=== PATIENT | male | born 1980 | race Caucasian/White ===

== ENCOUNTER 2020-09-18 17:35 | Emergency (ER) | payer OTHER, SELFPAY ==
[2020-09-18 17:51] VITALS: BP 115/80; PULSE 77; RESP 19; TEMP 37.4; O2SAT 94; BMI 25.5
--- NOTE | 2020-09-18 21:11 | ED_ITS ---
HPI - Male Genitourinary General Chief complaint: Urogenital-Male Stated complaint: states UTI Time Seen by Provider: 09/18/20 19:11 Source: patient Mode of arrival: Ambulatory Limitations: no limitations History of Present Illness HPI Narrative: 39-year-old male nonsmoker with noncontributory medical history presents with a chief complaint of a burning, frequency and urgency for the past 2 days. He has had a fever as high as 101 but denies any shaking chills, nausea, vomiting or back pain. 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 He denies any new partners, he denies any discharge and states his partner has no symptoms. MD Complaint: dysuria Onset (ago): day(s) Duration: constant Severity: mild Relieving factors: none Exacerbating factors: urination Context: new medication Associated symptoms: Reports fever Related Data Previous Rx's Medication Instructions Recorded sulfamethoxazole-trimethoprim 1 tab PO BID 10 Days #20 tab 09/18/20 [Bactrim DS] Allergies Allergy/AdvReac Type Severity Reaction Status Date / Time No Known Drug Allergies Allergy Verified 09/18/20 17:55 Review of Systems Constitutional Constitutional: Denies chills, Denies fatigue, Reports fever(s), Denies frequent falls, Denies lethargy and Denies weakness Eyes Eyes: Denies change in vision, Denies eye discharge, Denies irritation and Denies loss of vision ENT Ears, Nose, Mouth, and Throat: Denies change in voice, Denies dizziness, Denies neck pain, Denies sore throat and Denies throat swelling Cardiovascular Cardiovascular: Denies chest pain, Denies irregular heart rhythm, Denies lightheadedness, Denies palpitations, Denies dyspnea, Denies dyspnea on exertion and Denies orthopnea Respiratory Respiratory: Denies cough, Denies dyspnea, Denies dyspnea on exertion and Denies wheezing Gastrointestinal Gastrointestinal: Denies abdominal pain, Denies change in bowel habits, Denies diarrhea, Denies nausea and Denies vomiting Genitourinary Genitourinary: Reports dysuria and Reports urinary urgency Genitourinary: Reports dysuria and Reports urinary urgency Musculoskeletal Musculoskeletal: Denies neck pain and Denies numbness Integumentary/Breasts Skin/Breast: Denies pruritus, Denies erythema, Denies rash and Denies wounds Neurologic Neurologic: Denies behavioral changes, Denies confusion, Denies dizziness, Denies frequent falls, Denies loss of vision, Denies numbness and Denies weakness Psychiatric Psychiatric: Denies anxiety, Denies behavioral changes, Denies confusion, Denies depression, Denies homicidal ideation and Denies suicidal ideation Endocrine Endocrine: Denies fatigue, Denies flushing and Denies palpitations Hematologic/Lymphatic Hematologic/Lymphatic: Denies easy bruising Allergic/Immunologic Allergic/Immunologic: Denies urticaria, Denies throat swelling and Denies wheezing Patient History Social History Smoking Status: Never smoker Smoking Status: Never smoker alcohol intake frequency: 0-2 drinks per day Substance Use Type: does not use Exam Narrative Exam Narrative: GEN: AOx3 and in mild distress EYES: Pupils are equal, round, and reactive to light and accommodation. Extraoccular muscles are intact bilaterally. There is no subconjunctival hemorrhage or exudate. CHEST: Lungs are clear to auscultation bilaterally and free of wheezes, rales, or rhonchi. Heart rate is regular rhythm, there are no murmurs, clicks, rubs, or gallops. There is no chest wall tenderness. ABD: Abdomen is soft and nontender. There is no guarding or rebound. Bowel sounds are normal in all 4 quadrants. There is no mass or organomegaly. EXT: Full painless ROM of all extremities with no loss of sensation or strength. SKIN: Warm, pink, and dry. No erythema or rash Initial Vital Signs Initial Vital Signs: Vital Signs Temperature 99.3 F 09/18/20 17:51 Pulse Rate 77 09/18/20 17:51 Respiratory Rate 19 09/18/20 17:51 Blood Pressure 115/80 09/18/20 17:51 Pulse Oximetry 94 09/18/20 17:51 Course Orders Ordered: ED Orders 09/18/20 21:46 Urinalysis and Microscopic Stat Urine Culture Stat Discontinued Medications Trimethoprim/Sulfamethoxazole (Trimeth/Sulfa 160/800 (Ds) Tablet) 1 tab PO NOW ONE Stop: 09/18/20 22:53 Last Admin: 09/18/20 23:12 Dose: 1 tab Documented by: IDA Vital Signs Vital signs: Vital Signs - 8 hr 09/18/20 17:51 Temperature 99.3 F Pulse Rate 77 Respiratory Rate 19 Blood Pressure 115/80 Pulse Oximetry 94 MDM - Male Genitourinary Lab Data Labs: Lab Results 09/18/20 Range/Units 21:46 Urine Color Yellow Urine Appearance Clear Urine pH 6.5 (4.5-8.0) Ur Specific [place] 1.015 (1.000-1.035) Urine Protein Negative (Negative) Urine Glucose (UA) Negative (Negative) g/dL Urine Ketones 1+ H (NEGATIVE) Urine Occult Blood Negative (Negative) Urine Nitrate Negative (Negative) Urine Bilirubin Negative (NEGATIVE) Urine Urobilinogen 1.0 (0.2) E.U./dL Ur Leukocyte Esterase Negative (NEGATIVE) Urine RBC None seen (0-5/HPF) Urine WBC 1-5/hpf (0-5/HPF) Urine Bacteria Few (2-10) H (None) Ur Culture Indicated? Specimen cultured Urine Dip Bedside Urine Glucose Negative Bedside Urine Bilirubin - Negative Bedside Urine Ketone +/- 5 Urine Specific [place] 1.015 Bedside Urine Occult Blood - Negative Bedside Urine pH 6.0 Bedside Urine Protein - Negative Bedside Urine Urobilinogen - Negative Bedside Urine Nitrite - Negative Bedside Urine Leukocytes - Negative Esterase Discharge Plan Departure Patient Disposition: Home Clinical Impression: Urinary tract infection Qualifiers: Urinary tract infection type: acute pyelonephritis Qualified Code(s): N10 - Acute pyelonephritis Instructions: DI for Kidney Infection Activity Restrictions/Additional Instructions: *You have been diagnosed with [acute urinary tract infection, likely with kidney involvement] *What to do: *Take medications as directed *Follow up with your primary care provider in 2-3 days, call for an appointment. Let them know you were seen in the Emergency Department and that we ask that you be seen in follow up *Return to ER if you should have any new, worsening or concerning symptoms, fever, shaking chills, nausea, vomiting, worsening pain or other bothersome symptoms Prescriptions: New sulfamethoxazole-trimethoprim [Bactrim DS] 800-160 mg tablet 1 tab PO BID 10 Days Qty: 20 RF: 0
[2020-09-18 21:48] LABS: RBC Urine None Seen (0-5/HPF)
[2020-09-18 21:49] LABS: Appearance Urine UA CLEAR; Bilirubin Urine UA NEGATIVE (NEGATIVE); Color Urine UA YELLOW; Glucose Urine UA NEGATIVE (Negative); Ketones Urine UA 1+ (NEGATIVE); Leukocyte Esterase Urine UA NEGATIVE (NEGATIVE); Nitrite Urine UA NEGATIVE (Negative); Occult Blood Urine UA NEGATIVE (Negative); Protein Urine UA NEGATIVE (Negative); Specific Gravity Urine UA 1.015 (1.000-1.035); pH Urine UA 6.5 (4.5-8.0)
[2020-09-18 22:06] LABS: WBC Urine 1-5/HPF (0-5/HPF)
[2020-09-18 22:07] LABS: Bacteria Urine Few (2-10)
[2020-09-18 22:08] LABS: Culture Indicated Urine Specimen Cultured
[2020-09-18] MEDS: TRIMETH/SULFA 160/800 (DS) TABLET 1 TAB PO (23:12)
== END 2020-09-18 23:17 | disposition home or self-care (01) ==
PROVIDERS: Emergency Provider Emergency Medicine
DX: N39.0 Urinary tract infection, site not specified (principal); N10 Acute pyelonephritis; R50.9 Fever, unspecified; R30.0 Dysuria
CPT/HCPCS: 81001; 81003; 87077; 87086; 99281; 99283

== ENCOUNTER 2022-05-29 12:24 | Emergency (ER) | payer OTHER, SELFPAY ==
[2022-05-29 12:30] VITALS: TEMP 36.2; BMI 28.1
--- NOTE | 2022-05-29 12:35 | DI.RAD.S_ITS ---
PROCEDURE: XR CHEST 1V INDICATIONS: cough, recent covid, TECHNIQUE: One view of the chest was acquired. COMPARISON: None. FINDINGS: Surgical changes and devices: None. Lungs and pleura: Lungs are clear. No pleural effusions or pneumothorax. Mediastinum: Mediastinal contours appear normal. Heart size is normal. Bones and chest wall: No suspicious bony lesions. Overlying soft tissues appear unremarkable. IMPRESSION: No evidence of an acute cardiopulmonary abnormality. Dictated by: Nestor Livingston D.O. on 05/29/2022 at 12:07 Approved by: Nestor Livingston D.O. on 05/29/2022 at 12:07
[2022-05-29 12:57] LABS: COVID19 -Nasal RAPID Negative (Negative)
--- NOTE | 2022-05-29 15:59 | ED.URI ---
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 He says that 2 weeks ago he developed COVID symptoms and was COVID positive at that time. He was very sick for about 3 days and then got feeling quite a bit better. He was able to do full workout and go back to work about 5 days later. But then 1 week ago he started developing a cough and some fatigue and excessive sleepiness. His was treated for walking pneumonia just recently. He says everyone at home was sick with COVID at [place] time. He says that he is concerned that something more serious might be going on here today. He does not really have chest pain other than some fleeting sharp left sternal chest pains he has had no hemoptysis. He has no history of DVT or pulmonary embolism or any other health condition including neoplasm or pulmonary disease. He does not smoke cigarettes. Related Data Allergies Allergy/AdvReac Type Severity Reaction Status Date / Time No Known Drug Allergies Allergy Verified 09/18/20 17:55 Review of Systems Review of Systems Narrative: Complete review of systems is negative other than as noted above. Patient History Social History Smoking Status: Never smoker Smoking Status: Never smoker alcohol intake frequency: 0-2 drinks per day Substance Use Type: does not use Exam Narrative Exam Narrative: GENERAL: Alert, cooperative and in no distress. HEAD: Atraumatic. Normocephalic. EYES: Sclera are clear without icterus. Extraocular movements are full. ENT: No rhinorrhea. Oropharynx is moist. Mouth exam is benign. Ears are normal as well NECK: Supple. Full range of motion. CARDIOVASCULAR: Normal rate and rhythm without murmur gallop or rub. RESPIRATORY: Clear to auscultation. Breath sounds equal bilaterally. No wheezes, rales, or rhonchi. GASTROINTESTINAL: Abdomen soft, non-tender, nondistended. EXTREMITIES: No edema, full range of motion. No obvious trauma. BACK: Normal inspection, no CVA tenderness. NEURO: Nonfocal examination, normal speech, normal gait. SKIN: No rash or erythema of visible areas PSYCH: Normally oriented. Normal range of affect. Appropriate behavior Initial Vital Signs Initial Vital Signs: Vital Signs Temperature 97.1 F L 05/29/22 12:30 Course Orders Ordered: ED Orders 05/29/22 12:35 XR chest 1V Stat 05/29/22 12:36 COVID19 -Nasal RAPID/Pre-Proc Stat Vital Signs Vital signs: Vital Signs - 8 hr 05/29/22 12:30 Temperature 97.1 F L MDM - URI/Sore Throat Lab Data Labs: Lab Results 05/29/22 Range/Units 12:36 SARS-CoV-2 (PCR) Negative (Negative) Imaging Data Chest x-ray: Radiologist's Impression: IMPRESSION:? ? No evidence of an acute cardiopulmonary abnormality. ? ? Dictated by: Nestor Livingston D.O. on 05/29/2022 at 12:07 ? ? Approved by: Nestor Livingston D.O. on 05/29/2022 at 12:07 ? MDM Narrative Medical decision making narrative: Blood pressure is 140/80. Pulse is 60, oxygen saturation on room air is 99%. Heart rate is about 61. This gentleman looks well he has completely normal lung exam. I think he has residual inflammatory response in his bronchial tree. I do not think he has pneumonia or dangerous complications associated with his COVID infection. I think watchful waiting is still appropriate. Discharge Plan Departure Patient Disposition: Home Clinical Impression: Upper respiratory infection Activity Restrictions/Additional Instructions: Chest x-ray and COVID tests are negative. I do not suspect a dangerous complication associated with COVID-19 or any other serious infection. I do not think you have bacterial pneumonia. I think antibiotic treatment would be inappropriate in this setting as we would be exposing you to the risk with no expected benefit. I think watchful waiting is appropriate at this time and I recommend continued copious oral hydration and additional rest. You should follow-up with a primary care provider in a week if things are not starting to noticeably improved. Of course she should follow up right away if things are getting worse. Referrals: ProviderLadonna [Primary Care Provider] -
== END 2022-05-29 16:10 | disposition home or self-care (01) ==
PROVIDERS: Emergency Provider Family Medicine Addiction Medicine
DX: J06.9 Acute upper respiratory infection, unspecified (principal); Z20.822 Contact with and (suspected) exposure to COVID-19; Z86.16 Personal history of COVID-19
CPT/HCPCS: 71045; 87635; 99281; 99283; C9803

== ENCOUNTER → 2022-06-28 13:11 | Outpatient (CLI) | payer OTHER, SELFPAY ==
--- NOTE | 2022-06-28 | DI.RAD.S_ITS ---
PROCEDURE: FL SHOULDER INJECTION MR/CT LT INDICATIONS: Pain in shoulder COMPARISON: None. TECHNIQUE: The indications, alternatives, benefits, risks, and complications of the procedure were explained to the patient. Written informed consent was obtained and placed in the chart. The shoulder was examined fluoroscopically and a site for needle placement chosen for entry into the glenohumeral joint from an anterior approach. The skin was prepped and draped in a sterile fashion, and 1% lidocaine infiltrated from skin down to joint capsule. A spinal needle was inserted into the glenohumeral joint, and a small amount of iodinated contrast media injected to confirm intra-articular placement of the needle tip. This was followed by approximately 12 mL dilute solution of a gadolinium containing MR contrast agent. The needle was removed and a dressing was applied. The patient was given postprocedural instructions and sent to the MR suite for MR imaging. FINDINGS: A single fluoroscopic spot image demonstrates intra-articular location of injected iodinated contrast. IMPRESSION: Successful fluoroscopically guided administration of dilute Gadolinium solution into the shoulder joint for MR arthrogram. Dictated by: Joshua Castañeda M.D. on 06/28/2022 at 16:20 Approved by: Joshua Castañeda M.D. on 06/28/2022 at 16:20
--- NOTE | 2022-06-28 | DI.MRI.S_ITS ---
PROCEDURE: MR SHOULDER LT W CON INDICATIONS: Pain in left shoulder TECHNIQUE: After the administration of 12 mL of dilute intra-articular Gadolinium contrast, oblique coronal T1 and T2 spin echo with fat saturation, oblique sagittal T1 spin echo with and without fat saturation, oblique sagittal T2 fast spin echo with fat saturation, axial T1 spin echo with fat saturation through the shoulder. COMPARISON: None. FINDINGS: Image quality: Excellent. Rotator cuff: There is partial-thickness tear of the distal supraspinatus tendon involving both articular and bursal surface. The infraspinatus and subscapularis tendons appear intact throughout. No rotator cuff muscle atrophy on sagittal images. Bones and bursae: No bone marrow contusions or fractures. Moderate acromioclavicular and mild glenohumeral joint degeneration. The acromion demonstrates conventional anatomy, without an os acromiale. Capsule and soft tissues: Suspect a SLAP tear in the superior labrum at the 12:00 (series 8, image 10). The glenohumeral ligaments appear intact. The long head of the biceps tendon demonstrates normal location and morphology. The rotator interval appears normal, without fibrosis. The coracohumeral ligament is of normal thickness. No intra-articular bodies. IMPRESSION: 1. Partial-thickness tear of the supraspinatus tendon. No tendon retraction or supraspinatus muscle atrophy. 2. Moderate acromioclavicular and mild glenohumeral joint degeneration. 3. Suspect SLAP tear at the 12:00 position. Dictated by: Melania Saldivar M.D. on 06/29/2022 at 17:17 Approved by: Melania Saldivar M.D. on 06/29/2022 at 17:25
== END ==
DX: M75.112 Incomplete rotator cuff tear or rupture of left shoulder, not specified as traumatic (principal); M19.012 Primary osteoarthritis, left shoulder
CPT/HCPCS: 23350; 73222

== ENCOUNTER → 2022-06-29 12:55 | Outpatient (CLI) | payer OTHER, SELFPAY ==
--- NOTE | 2022-06-29 | DI.MRI.S_ITS ---
PROCEDURE: MR SHOULDER RT W CON INDICATIONS: Pain in shoulder TECHNIQUE: After the administration of 12 mL of dilute intra-articular Gadolinium contrast, oblique coronal T1 and T2 spin echo with fat saturation, oblique sagittal T1 spin echo with and without fat saturation, oblique sagittal T2 fast spin echo with fat saturation, axial T1 spin echo with fat saturation through the shoulder. COMPARISON: None. FINDINGS: Image quality: Excellent. Rotator cuff: There is mild T2 signal elevation throughout the supraspinatus and infraspinatus tendons at the humeral insertion sites extending to the musculotendinous junctions, indicating tendinopathy. Superimposed low-grade partial-thickness intrasubstance tearing of the anterior, mid, and posterior supraspinatus tendons as well as the anterior infraspinatus tendons at the humeral insertion sites. Low-grade partial-thickness intrasubstance tearing of the mid and superior aspect of the subscapularis tendon at the humeral insertion site extending to the musculotendinous junction. Teres minor is intact. No rotator cuff atrophy. Bones and bursae: No bone marrow contusions or fractures. Mild acromioclavicular joint degeneration. The acromion demonstrates conventional anatomy, without an os acromiale. Small amount of subacromial fluid. Capsule and soft tissues: The labrum and glenohumeral ligaments appear intact. The long head of the biceps tendon demonstrates normal location and morphology. The rotator interval appears normal, without fibrosis. The coracohumeral ligament is of normal thickness. No intra-articular bodies. IMPRESSION: 1. Supraspinatus and infraspinatus tendinopathy with superimposed low-grade partial-thickness tears. Low-grade partial-thickness tearing of the subscapularis. 2. Acromioclavicular joint osteoarthritis. 3. Subacromial bursitis. Dictated by: Joshua Castañeda M.D. on 06/29/2022 at 15:54 Transcribed by: KARLI on 06/29/2022 at 15:55 Approved by: Joshua Castañeda M.D. on 06/29/2022 at 16:00
--- NOTE | 2022-06-29 | DI.RAD.S_ITS ---
PROCEDURE: FL SHOULDER INJECTION MR/CT RT INDICATIONS: Pain in shoulder COMPARISON: [facility], , [place] SHOULDER INJECTION MR/CT LT, 06/28/2022, 13:41. TECHNIQUE: The indications, alternatives, benefits, risks, and complications of the procedure were explained to the patient. Written informed consent was obtained and placed in the chart. The shoulder was examined fluoroscopically and a site for needle placement chosen for entry into the glenohumeral joint from an anterior approach. The skin was prepped and draped in a sterile fashion, and 1% lidocaine infiltrated from skin down to joint capsule. A spinal needle was inserted into the glenohumeral joint, and a small amount of iodinated contrast media injected to confirm intra-articular placement of the needle tip. This was followed by approximately 12 mL dilute solution of a gadolinium containing MR contrast agent. The needle was removed and a dressing was applied. The patient was given postprocedural instructions and sent to the MR suite for MR imaging. FINDINGS: A single fluoroscopic spot image demonstrates intra-articular location of injected iodinated contrast. IMPRESSION: Successful fluoroscopically guided administration of dilute Gadolinium solution into the shoulder joint for MR arthrogram. Dictated by: Alexander Patel M.D. on 06/30/2022 at 16:57 Approved by: Alexander Patel M.D. on 06/30/2022 at 16:58
== END ==
DX: M25.511 Pain in right shoulder (principal); M75.111 Incomplete rotator cuff tear or rupture of right shoulder, not specified as traumatic; M19.011 Primary osteoarthritis, right shoulder; M75.51 Bursitis of right shoulder
CPT/HCPCS: 23350; 73222; 77002

== ENCOUNTER → 2023-12-21 08:22 | Outpatient (CLI) | payer OTHER, SELFPAY ==
--- NOTE | 2023-12-21 08:25 | DI.RAD.S_ITS ---
PROCEDURE: FL WRIST INJECTION MR/CT RT INDICATIONS: pain in right wrist COMPARISON: None. TECHNIQUE: After informed consent had been obtained, the wrist was examined fluoroscopically, and a site chosen for injection of the radiocarpal compartment from a dorsal approach. Skin was prepped and draped in a sterile fashion and 1% lidocaine infiltrated from the skin down to the articular surface. A hypodermic needle was then introduced into the articular space and a modest amount of contrast medium was instilled confirming intra-articular needle tip placement. This was followed by approximately 4 mL of a dilute gadolinium solution. Needle was removed and dressing was applied. The patient experienced no complications throughout the procedure and left the fluoroscopic suite in no apparent distress. FINDINGS: A single fluoroscopic spot image demonstrates intra-articular location to injected iodinated contrast. IMPRESSION: Successful fluoroscopic-guided administration of dilute Gadolinium solution for wrist MR arthrogram. Approved by: Ary Albert M.D. on 12/21/2023 at 13:52
--- NOTE | 2023-12-21 08:26 | DI.MRI.S_ITS ---
PROCEDURE: MR WRIST RT W CON INDICATIONS: pain in right wrist TECHNIQUE: After the administration of 3-4 mL of dilute intra-articular Gadolinium contrast into the radiocarpal compartment, coronal T1 spin echo with fat saturation and T2 fast spin echo with fat saturation, axial T1 spin echo and T2 fast spin echo with fat saturation, sagittal T1 spin echo with and without fat saturation through the wrist. COMPARISON: None. FINDINGS: Image quality: Excellent. Bones and cartilage: The carpal bones are normally aligned. No bone marrow contusions or fractures. No evidence for avascular necrosis. Overlying cartilage surfaces appear normal. Carpal ligaments: The scapholunate and lunotriquetral ligaments appear intact, without gadolinium extravasation into the mid-carpal compartment. The radioscaphocapitate and radiolunotriquetral ligaments appear intact. The arcuate ligament and short radiolunate ligament also appear normal. The dorsal intercarpal and radiotriquetral ligaments appear intact. On sagittal images, the pisohamate ligament appears intact. Triangular fibrocartilage complex: There is suggestion of focal triangular fibrocartilage perforation near its radial insertion with gadolinium extravasation into the distal radioulnar joint. The adjacent meniscal homolog appears normal. The ulnar collateral ligament appears intact. The extensor carpi ulnaris tendon is thickened at the level of ulnar styloid tip/triquetrum. Tendons and soft tissues: The carpal tunnel structures appear normal, including the median nerve. The ulnar nerve appears normal within Guyon's canal. All six extensor tendon compartments demonstrate normal morphology, without pathologic tendon sheath fluid. No soft tissue ganglion cysts. IMPRESSION: 1. Suggestion of triangular fibrocartilage tear at its radial insertion with contrast extravasating into distal radial ulnar joint space. 2. No marrow edema. No fracture or dislocation. No evidence of avascular necrosis. 3. Intrinsic and extrinsic wrist ligaments are grossly intact. 4. Tendinosis involving extensor carpi ulnaris tendon at the level of ulnar styloid/triquetrum. Rest of the extensor and flexor tendons are grossly intact. Dictated by: Kayden Guerin M.D. on 12/21/2023 at 14:22 Approved by: Kayden Guerin M.D. on 12/21/2023 at 15:03
[2023-12-21] MEDS: LIDOCAINE 1% 20 ML INJ (09:48)
[2023-12-21] MEDS: SODIUM CHLORIDE 0.9 % 20 ML VIAL IV (09:49)
== END ==
LOC: RAD 08:23
PROVIDERS: Referring Provider General Practice; Visit Provider General Practice
DX: M25.531 Pain in right wrist (principal)
CPT/HCPCS: 20605; 73222; 77002

== ENCOUNTER → 2024-01-09 07:58 | Outpatient (CLI) | payer OTHER, SELFPAY ==
--- NOTE | 2024-01-09 07:59 | DI.MRI.S_ITS ---
PROCEDURE: MR WRIST LT W CON INDICATIONS: Wrist pain TECHNIQUE: After the administration of 3-4 mL of dilute intra-articular Gadolinium contrast into the radiocarpal compartment, coronal T1 spin echo with fat saturation and T2 fast spin echo with fat saturation, axial T1 spin echo and T2 fast spin echo with fat saturation, sagittal T1 spin echo with and without fat saturation through the wrist. COMPARISON: [facility], MR, MR WRIST RT W CON, 12/21/2023, 9:49. FINDINGS: Image quality: Excellent. Bones and cartilage: The carpal bones are normally aligned. No bone marrow contusions or fractures. No evidence for avascular necrosis. Osteoarthritic changes at 1st CMC joint are seen with joint space narrowing, subchondral sclerosis and subcortical cystic changes at 1st metacarpal base. Carpal ligaments: The scapholunate and lunotriquetral ligaments appear intact, without gadolinium extravasation into the mid-carpal compartment. The radioscaphocapitate and radiolunotriquetral ligaments appear intact. The arcuate ligament and short radiolunate ligament also appear normal. The dorsal intercarpal and radiotriquetral ligaments appear intact. On sagittal images, the pisohamate ligament appears intact. Triangular fibrocartilage complex: There is suggestion of focal triangular fibrocartilage tear near its radial insertion with gadolinium extravasation into the distal radioulnar joint. The adjacent meniscal homolog appears normal. The ulnar collateral ligament appears intact. The extensor carpi ulnaris tendon is normal in location and morphology. Tendons and soft tissues: The carpal tunnel structures appear normal, including the median nerve. The ulnar nerve appears normal within Guyon's canal. All six extensor tendon compartments demonstrate normal morphology, without pathologic tendon sheath fluid. No soft tissue ganglion cysts. IMPRESSION: 1. Finding is consistent with focal triangular fibrocartilage tear near its radial insertion with contrast extravasating into distal radial ulnar joint space. 2. Extensor and flexor tendons are intact. 3. Intrinsic and extrinsic wrist ligaments are grossly intact. 4. Mild 1st CMC joint osteoarthritis. No fracture or dislocation. No evidence of avascular necrosis. Dictated by: Kayden Guerin M.D. on 01/09/2024 at 10:37 Approved by: Kayden Guerin M.D. on 01/09/2024 at 10:42
--- NOTE | 2024-01-09 08:00 | DI.RAD.S_ITS ---
PROCEDURE: FL WRIST INJECTION MR/CT LT INDICATIONS: Wrist pain COMPARISON: [facility], [place], [place] WRIST INJECTION MR/CT RT, 12/21/2023, 9:23. [facility], , MR WRIST LT W CON, 01/09/2024, 8:43. TECHNIQUE: After informed consent had been obtained, the wrist was examined fluoroscopically, and a site chosen for injection of the radiocarpal compartment from a dorsal approach. Skin was prepped and draped in a sterile fashion and 1% lidocaine infiltrated from the skin down to the articular surface. A hypodermic needle was then introduced into the articular space and a modest amount of contrast medium was instilled confirming intra-articular needle tip placement. This was followed by approximately 4 mL of a dilute gadolinium solution. Needle was removed and dressing was applied. The patient experienced no complications throughout the procedure and left the fluoroscopic suite in no apparent distress. FINDINGS: A single fluoroscopic spot image demonstrates intra-articular location to injected iodinated contrast. IMPRESSION: Successful fluoroscopic-guided administration of dilute Gadolinium solution for wrist MR arthrogram. Dictated by: Eulalio Major M.D. on 01/09/2024 at 14:13 Approved by: Eulalio Major M.D. on 01/09/2024 at 14:14
[2024-01-09] MEDS: LIDOCAINE 1% 20 ML INJ (09:07)
[2024-01-09] MEDS: SODIUM CHLORIDE 0.9 % 20 ML VIAL IV (09:07)
== END ==
PROVIDERS: Referring Provider Orthopaedic Surgery; Visit Provider Orthopaedic Surgery
DX: M18.12 Unilateral primary osteoarthritis of first carpometacarpal joint, left hand (principal); M25.532 Pain in left wrist
CPT/HCPCS: 20605; 73222; 77002; A9579; Q9967

== ENCOUNTER → 2024-02-14 08:50 | Outpatient (CLI) | payer OTHER, SELFPAY ==
--- NOTE | 2024-02-14 08:50 | DI.MRI.S_ITS ---
PROCEDURE: MR LUMBAR SPINE WO CON INDICATIONS: LOW BACK PAIN / ARTHRALGIA OF TMJ JOINT/JAW PAIN TECHNIQUE: Noncontrast sagittal T1 spin echo and T2 fast echo, sagittal STIR, and T2 fast spin echo through the lumbar spine. In cases with scoliosis, additional coronal T2 fast spin echo may be performed. COMPARISON: [facility], MR, MR TMJ WO CON, 02/14/2024, 9:26. FINDINGS: Image quality: Diagnostic, with note made of motion artifact. Alignment and Curvature: There is normal bony alignment. Bone Marrow: Marrow is of normal overall signal. No acute vertebral body compression fractures. Spinal Cord: Conus medullaris terminates at the L1 level. Visualized cord demonstrates normal signal and size. Paraspinous Soft Tissues: No paravertebral masses. T12-L1: Normal appearance. L1-L2: Normal appearance. L2-L3: Normal appearance. L3-L4: Normal appearance. L4-L5: The disc height and disk signal are relatively well-preserved. Mild to moderate disc bulge is seen, which is eccentric to the right, with a mild right foraminal disc protrusion, as on series 6, image 15. There is associated annular fissure seen posteriorly and on the right, as on series 4, image 6 and on series 6, image 15. There is there is moderate right-sided and mild left-sided neural foraminal narrowing. No central canal narrowing is seen. L5-S1: Moderate loss of disc height and disc signal can be seen. Reactive marrow endplate changes are seen which are hypointense on T1-weighted imaging and hyperintense on T2 weighted imaging, which is most consistent with edema (Modic type I changes). At least moderate disc bulge is seen, with a central disc protrusion. There is moderate to severe bilateral neural foraminal narrowing seen, with an associated a degree of compression seen upon the exiting nerve roots. Mild central canal narrowing is seen. IMPRESSION: Lower lumbar spine degenerative changes can be seen, with significant degenerative change seen at the L5-S1 level. Dictated by: Saurabh Mckay M.D. on 02/14/2024 at 11:01 Approved by: Saurabh Mckay M.D. on 02/14/2024 at 11:03
--- NOTE | 2024-02-14 08:51 | DI.MRI.S_ITS ---
PROCEDURE: MR TMJ WO CON INDICATIONS: LOW BACK PAIN / ARTHRALGIA OF TMJ JOINT/JAW PAIN TECHNIQUE: Axial T1 spin echo, coronal and sagittal PD fast spin echo through the temporomandibular joints, in both the closed- and open-mouth positions. COMPARISON: [facility], MR, MR LUMBAR SPINE WO CON, 02/14/2024, 9:04. FINDINGS: Image quality: Diagnostic, with note made of motion artifact. Right: Joint is normally aligned on closed and open-mouth positioning. Articular disk demonstrates normal location and morphology. On the open mouth images, the right articular disc capture is normally. No bony erosions or osteophytes. Left: Joint is normally aligned on closed and open-mouth positioning. Articular disk demonstrates normal location and morphology. The left articular disc capture is normally on the open mouth images. No bony erosions or osteophytes. IMPRESSION: Normal bilateral TMJ study. Dictated by: Saurabh Mckay M.D. on 02/14/2024 at 10:58 Approved by: Saurabh Mckay M.D. on 02/14/2024 at 11:01
== END ==
LOC: MRI 08:50
PROVIDERS: Referring Provider Dentist Oral and Maxillofacial Surgery; Visit Provider Dentist Oral and Maxillofacial Surgery
DX: M47.817 Spondylosis without myelopathy or radiculopathy, lumbosacral region (principal); M47.816 Spondylosis without myelopathy or radiculopathy, lumbar region; M26.629 Arthralgia of temporomandibular joint, unspecified side; R68.84 Jaw pain; M54.50 Low back pain, unspecified
CPT/HCPCS: 70336; 72148

== ENCOUNTER → 2024-06-16 11:02 | Outpatient (CLI) | payer OTHER, SELFPAY ==
--- NOTE | 2024-06-16 11:04 | DI.MRI.S_ITS ---
PROCEDURE: MR CERVICAL SPINE WO CON INDICATIONS: CHRONIC PAIN IN CERVICAL NECK TECHNIQUE: Noncontrast sagittal T1 spin echo and T2 fast spin echo, sagittal STIR, foraminal oblique sagittal T2 fast spin echo, and axial gradient echo or T2 fast spin echo through the cervical spine. COMPARISON: None. FINDINGS: Image quality: Excellent. Alignment and Curvature: There is normal bony alignment. Bone Marrow: Marrow demonstrates normal overall signal. Spinal Cord: Visualized spinal cord has normal size and signal. No cerebellar tonsillar herniation. Paraspinous Soft Tissues: No paravertebral masses. Prevertebral soft tissues are normal in thickness. C2-C3: Normal appearance. C3-C4: Mild right uncovertebral joint hypertrophy. Mild right foraminal narrowing. C4-C5: Mild bilateral uncovertebral joint hypertrophy, left greater than right causing [id number] left, and mild right foraminal narrowing. C5-C6: Right foraminal disc osteophyte and mild facet arthropathy causes moderate to severe right foraminal stenosis. Mild left foraminal disc osteophyte and mild facet arthropathy cause moderate left foraminal stenosis. C6-C7: Mild right uncovertebral joint hypertrophy. C7-T1: Normal appearance. IMPRESSION: Degenerative disc osteophyte and uncovertebral joint hypertrophy at C4-5 and C5-6 cause of bilateral foraminal narrowing, most severe on the right at C5-6. Correlate with right C6 radiculopathy. Dictated by: Enma Sanford M.D. on 06/17/2024 at 12:33 Approved by: Enma Sanford M.D. on 06/17/2024 at 12:39
== END ==
LOC: MRI 11:03
PROVIDERS: Referring Provider Student in an Organized Health Care Education/Training Program; Visit Provider Student in an Organized Health Care Education/Training Program
DX: M48.02 Spinal stenosis, cervical region (principal); M47.812 Spondylosis without myelopathy or radiculopathy, cervical region; M54.2 Cervicalgia; M17.10 Unilateral primary osteoarthritis, unspecified knee; M25.78 Osteophyte, vertebrae
CPT/HCPCS: 72141

== ENCOUNTER → 2024-06-17 11:30 | Outpatient (CLI) | payer OTHER, SELFPAY ==
--- NOTE | 2024-06-17 | DI.US.S_ITS ---
PROCEDURE: US SCROTUM INDICATIONS: LEFT SCROTAL PAIN TECHNIQUE: Real-time scanning was performed of the scrotum and testicles, with image documentation. Color and pulse Doppler interrogation was performed of both testicles. COMPARISON: None. FINDINGS: Right: Testicle is normal in size at 5.0 x 2.2 x 2.7 cm, and homogenous in echotexture. Epididymis is normal in overall size and morphology. No hydrocele or varicoceles. Overlying scrotal skin is normal in thickness. Left: Testicle is normal in size at 5.0 x 2.0 x 3.6 cm, and homogeneous in echotexture. Epididymis is normal in overall size and morphology. No hydrocele or varicoceles. Overlying scrotal skin is normal in thickness. Doppler: Color and pulse Doppler demonstrate normal and symmetric arterial flow in both testicles. IMPRESSION: Normal bilateral testicular sonogram. Dictated by: Chinmay Coburn M.D. on 06/17/2024 at 14:21 Approved by: Chinmay Coburn M.D. on 06/17/2024 at 14:39
== END ==
DX: N50.812 Left testicular pain (principal)
CPT/HCPCS: 76870; 93975

== ENCOUNTER 2024-11-21 16:25 | Emergency (ER) | payer OTHER, SELFPAY ==
[2024-11-21 17:17] VITALS: BP 101/71; PULSE 88; RESP 16; TEMP 36.8; O2SAT 96; BMI 29.7
--- NOTE | 2024-11-21 17:23 | ED.NAVMDI ---
HPI - Nausea/Vomiting/Diarrhea <Patti Cantu PA-C - Last Filed: 11/21/24 20:42> General Chief complaint: Nausea/Vomiting/Diarrhea Stated complaint: vomiting, diarrhea, abd px Time Seen by Provider: 11/21/24 16:35 Source: patient Mode of arrival: Ambulatory History of Present Illness HPI Narrative: Conor Ayala is a 43-year-old male with no reported past medical history who presents to the emergency department with his and daughter for acute onset nausea vomiting diarrhea that started this afternoon. Everyone in the house woke up this morning feeling slightly weak but developed nausea vomiting and diarrhea as the day went on. Patient reports he is having generalized body aches as well. They deny any recent travel, known gastroenteritis exposure, eating any abnormal foods yesterday and they report that none of them ate the same meal yesterday. They do have 1 family member who is not sick. He denies chest pain shortness of breath, sore throat, cough. No medications prior to arrival. Denies smoking, drug use, alcohol use. Related Data Previous Rx's Medication Instructions Recorded metronidazole 500 mg tablet 500 mg PO Q12H 7 days #14 tabs 11/21/24 ondansetron 4 mg disintegrating 4 mg PO Q8H PRN nausea and 11/21/24 tablet vomiting #14 tabs Allergies Allergy/AdvReac Type Severity Reaction Status Date / Time No Known Drug Allergies Allergy Verified 09/18/20 17:55 Review of Systems <Patti Cantu PA-C - Last Filed: 11/21/24 20:42> Review of Systems ROS Unobtainable: All systems reviewed & are unremarkable except as noted in HPI and below Patient History <Patti Cantu PA-C - Last Filed: 11/21/24 20:42> Social History Smoking Status: Never smoker Smoking Status: Never smoker alcohol intake frequency: 0-2 drinks per day Exam <Patti Cantu PA-C - Last Filed: 11/21/24 20:42> Narrative Exam Narrative: GENERAL: 43 year old patient appears stated age. Well-developed patient, in mild distress. HEAD: Atraumatic. Normocephalic. NECK: Trachea midline. Cervical ROM intact. CARDIOVASCULAR: Regular rate and rhythm. RESPIRATORY: ?Nonlabored respirations. ?Speaking in clear, full sentences. ?Clear to auscultation. GASTROINTESTINAL: Abdomen soft, non-tender, nondistended. EXTREMITIES: No edema or joint tenderness. BACK: Nontender without deformity or crepitance. No flank tenderness. NEURO: AOx3. ?Clear speech. ?Moves all 4 extremities appropriately. SKIN: No rash or erythema of visible areas Initial Vital Signs Initial Vital Signs: Vital Signs Temperature 98.3 F 11/21/24 17:17 Pulse Rate 88 11/21/24 17:17 Respiratory Rate 16 11/21/24 17:17 Blood Pressure 101/71 11/21/24 17:17 Pulse Oximetry 96 11/21/24 17:17 Oxygen Delivery Method Room Air 11/21/24 17:17 <Shanti Perry MD - Last Filed: 11/22/24 00:07> Initial Vital Signs Initial Vital Signs: Vital Signs Temperature 98.3 F 11/21/24 17:17 Pulse Rate 88 11/21/24 17:17 Respiratory Rate 16 11/21/24 17:17 Blood Pressure 101/71 11/21/24 17:17 Pulse Oximetry 96 11/21/24 17:17 Oxygen Delivery Method Room Air 11/21/24 17:17 Course <Patti Cantu PA-C - Last Filed: 11/21/24 20:42> Orders Ordered: ED Orders 11/21/24 16:56 Covid-19 + FLU A/B + RSV - PCR Stat 11/21/24 17:37 GI Panel (Film Array) Stat Discontinued Medications Sodium Chloride (Normal Saline 0.9%) 1,000 mls @ 1,000 mls/hr IV BOLUS ONE Stop: 11/21/24 18:21 Last Infusion: 11/21/24 18:35 Dose: Infused Documented By: Admin: 11/21/24 17:53 Dose: 1,000 mls/hr Documented By: LAKSHMI Acetaminophen (Ofirmev) 1,000 mg in 100 mls @ 400 mls/hr IV NOW ONE Stop: 11/21/24 17:36 Last Infusion: 11/21/24 18:16 Dose: Infused Documented By: Admin: 11/21/24 17:54 Dose: 400 mls/hr Documented By: LAKSHMI Ondansetron HCl (Ondansetron 4 Mg/2 Ml Inj) 4 mg IV NOW ONE Stop: 11/21/24 17:23 Last Admin: 11/21/24 17:53 Dose: 4 mg Documented By: LAKSHMI Vital Signs Vital signs: Vital Signs - 8 hr 11/21/24 17:17 11/21/24 19:00 Temperature 98.3 F 98.3 F Pulse Rate 88 73 Respiratory Rate 16 16 Blood Pressure 101/71 107/52 L Pulse Oximetry 96 110 H Oxygen Delivery Method Room Air <Shanti Perry MD - Last Filed: 11/22/24 00:07> Orders Ordered: ED Orders 11/21/24 16:56 Covid-19 + FLU A/B + RSV - PCR Stat 11/21/24 17:37 GI Panel (Film Array) Stat Discontinued Medications Sodium Chloride (Normal Saline 0.9%) 1,000 mls @ 1,000 mls/hr IV BOLUS ONE Stop: 11/21/24 18:21 Last Infusion: 11/21/24 18:35 Dose: Infused Documented By: Admin: 11/21/24 17:53 Dose: 1,000 mls/hr Documented By: LAKSHMI Acetaminophen (Ofirmev) 1,000 mg in 100 mls @ 400 mls/hr IV NOW ONE Stop: 11/21/24 17:36 Last Infusion: 11/21/24 18:16 Dose: Infused Documented By: Admin: 11/21/24 17:54 Dose: 400 mls/hr Documented By: LAKSHMI Ondansetron HCl (Ondansetron 4 Mg/2 Ml Inj) 4 mg IV NOW ONE Stop: 11/21/24 17:23 Last Admin: 11/21/24 17:53 Dose: 4 mg Documented By: LAKSHMI Vital Signs Vital signs: Vital Signs - 8 hr 11/21/24 17:17 11/21/24 19:00 Temperature 98.3 F 98.3 F Pulse Rate 88 73 Respiratory Rate 16 16 Blood Pressure 101/71 107/52 L Pulse Oximetry 96 110 H Oxygen Delivery Method Room Air MDM - Nausea/Vomiting/Diarrhea <Patti Cantu PA-C - Last Filed: 11/21/24 20:42> Medical Records Attestation: I reviewed the patient's medical records. Lab Data Labs: Lab Results 11/21/24 11/21/24 Range/Units 16:56 17:37 Stl C. cayetanensis PCR Not detected (Not Detect) Stool Rotavirus (PCR) Not detected (Not Detect) Stool Adenovirus (PCR) Not detected (Not Detect) Stool Astrovirus (PCR) Not detected (Not Detect) Stool Cryptosporidium PCR Not detected (Not Detect) Stl E.coli Shiga Tox PCR Not detected (Not Detect) St Sh/Enteroin Ecoli PCR Not detected (Not Detect) Stl Enterotoxigenic E PCR Not detected (Not Detect) Stool EPEC (PCR) Not detected (Not Detect) Stl E. histolytica PCR Not detected (Not Detect) Stool Giardia Lamblia PCR Detected (Not Detect) Stool Sapovirus (PCR) Not detected (Not Detect) Stl P. shigelloides PCR Not detected (Not Detect) St Y.enterocolitica PCR Not detected (Not Detect) Stool Vibrio (PCR) Not detected (Not Detect) Stl Vibrio cholerae PCR Not detected (Not Detect) Stl Enteroaggr Ecoli PCR Not detected (Not Detect) Stl Norovirus GI/GII PCR Detected (Not Detect) Campylobacter (PCR) Not detected (Not Detect) C. difficile Tox (PCR) Not detected (Not Detect) SARS-CoV-2 (PCR) Negative (Negative) Influenza A (RT-PCR) Flu a negative (NEGATIVE) Influenza B (RT-PCR) Flu b negative (NEGATIVE) RSV (PCR) Negative (Negative) Salmonella (PCR) Not detected (Not Detect) MDM Narrative Medical decision making narrative: 43-year-old male with no reported past medical history who presents to the emergency department with his and daughter for acute onset nausea vomiting diarrhea that started this afternoon. Everyone in the house woke up this morning feeling slightly weak but developed nausea vomiting and diarrhea as the day went on. Patient reports he is having generalized body aches as well. They deny any recent travel, known gastroenteritis exposure, eating any abnormal foods yesterday and they report that none of them ate the same meal yesterday. Differential diagnosis includes but is not limited to gastroenteritis, norovirus, viral syndrome, etc. On exam patient is in mild distress, not actively vomiting, abdomen is soft and nontender, all vital signs within normal limits. He did provide a stool sample which is essentially brown tinted water. We will treat with IV fluids Zofran acetaminophen and obtain GI panel and viral swab. Patient feeling much better after ED treatment, tolerating p.o., abdomen soft and nontender. Viral swab negative, GI panel positive for norovirus and Giardia lamblia. 8:38pm called patient and informed him of Giardia lamblia positive result. Denies any exposure to known contaminated food or water. Discussed with the attending physician as well, metronidazole 500 mg p.o. 2 times daily x7 days sent to the patient's pharmacy of choice. Patient was sent ondansetron to pharmacy of choice, discussed strict ED return precautions, follow up with PCP. Recommended rest, hydration, Zofran, completing full course of antibiotics. Patient verbalized understanding of all information is agreeable to the plan. He is stable for discharge home. <Shanti Perry MD - Last Filed: 11/22/24 00:07> Lab Data Labs: Lab Results 11/21/24 11/21/24 Range/Units 16:56 17:37 Stl C. cayetanensis PCR Not detected (Not Detect) Stool Rotavirus (PCR) Not detected (Not Detect) Stool Adenovirus (PCR) Not detected (Not Detect) Stool Astrovirus (PCR) Not detected (Not Detect) Stool Cryptosporidium PCR Not detected (Not Detect) Stl E.coli Shiga Tox PCR Not detected (Not Detect) St Sh/Enteroin Ecoli PCR Not detected (Not Detect) Stl Enterotoxigenic E PCR Not detected (Not Detect) Stool EPEC (PCR) Not detected (Not Detect) Stl E. histolytica PCR Not detected (Not Detect) Stool Giardia Lamblia PCR Detected (Not Detect) Stool Sapovirus (PCR) Not detected (Not Detect) Stl P. shigelloides PCR Not detected (Not Detect) St Y.enterocolitica PCR Not detected (Not Detect) Stool Vibrio (PCR) Not detected (Not Detect) Stl Vibrio cholerae PCR Not detected (Not Detect) Stl Enteroaggr Ecoli PCR Not detected (Not Detect) Stl Norovirus GI/GII PCR Detected (Not Detect) Campylobacter (PCR) Not detected (Not Detect) C. difficile Tox (PCR) Not detected (Not Detect) SARS-CoV-2 (PCR) Negative (Negative) Influenza A (RT-PCR) Flu a negative (NEGATIVE) Influenza B (RT-PCR) Flu b negative (NEGATIVE) RSV (PCR) Negative (Negative) Salmonella (PCR) Not detected (Not Detect) Discharge Plan Departure Patient Disposition: Home Clinical Impression: Norovirus, Giardia Instructions: DI for Norovirus Infection Activity Restrictions/Additional Instructions: Today tested positive for norovirus. This is the ?stomach flu? and will typically be better in 24-48 hours. Please rest, hydrate with Pedialyte, use Zofran as needed, return to ER for any concerns. Please wash her hands frequently and wipe down all surfaces with bleach to avoid the spread of germs. Please follow up with your primary care doctor within the next 2-3 days for ER follow-up. (If you do not have a PCP you can call [phone]. ?to schedule an appointment with an [facility] Primary Care Provider) IF YOU DEVELOP ANY NEW OR WORSENING SYMPTOMS, RETURN TO THE ER! Please read the attached instructions, they highlight more specific treatments and interventions for you at home. Thank you for letting me participate in your care, Patti Cantu PA-C Prescriptions: New ondansetron 4 mg tablet,disintegrating 4 mg PO Q8H PRN (Reason: nausea and vomiting) Qty: 14 0RF metronidazole 500 mg tablet 500 mg PO Q12H 7 Days Qty: 14 0RF Referrals: ProviderLadonna [Primary Care Provider] - Stand Alone Forms: Patient Portal/API/Survey, Work Release Note ED Sign-out <Shanti Perry MD - Last Filed: 11/22/24 00:07> Cosign ED Attending Darcieature Attestation: I did not see this patient. I was available all times for consultation.
[2024-11-21] MEDS: ONDANSETRON 4 MG/2 ML INJ IV (17:53)
[2024-11-21] MEDS: SODIUM CHLORIDE 0.9% 1,000 ML 1000 ML IV (17:53)
[2024-11-21] MEDS: ACETAMINOPHEN IV 1,000 MG/100 ML VIAL 400 MG IV (17:54)
[2024-11-21 18:08] LABS: Influenza A - CEPHEID Flu A NEGATIVE (NEGATIVE); Influenza B - CEPHEID Flu B NEGATIVE (NEGATIVE); Respiratory Syncytial Virus Negative (Negative)
[2024-11-21 18:20] LABS: COVID-19 CEPHEID 4-PLEX PCR Negative (Negative)
[2024-11-21 19:00] VITALS: BP 107/52; PULSE 73; RESP 16; TEMP 36.8; O2SAT 110
[2024-11-21 19:07] LABS: Adenovirus F 40/41 Not Detected (Not Detect); Astrovirus Not Detected (Not Detect); Campylobacter Not Detected (Not Detect); Clostridium difficile toxin AB Not Detected (Not Detect); Cryptosporidium Not Detected (Not Detect); Cyclospora cayetanensis Not Detected (Not Detect); Entamoeba histolytica Not Detected (Not Detect); Enteroaggregative E.coli Not Detected (Not Detect); Enteropathogenic E.coli Not Detected (Not Detect); Enterotoxigenic E.coli It/st Not Detected (Not Detect); Giardia lamblia Detected (Not Detect); Norovirus GI/GII Detected (Not Detect); Plesiomonsa shigelloides Not Detected (Not Detect); Rotavirus A Not Detected (Not Detect); Salmonella Not Detected (Not Detect); Sapovirus Not Detected (Not Detect); Shiga-like toxin-prod E.coli Not Detected (Not Detect); Shigella/Enteroinvasive E.coli Not Detected (Not Detect); Vibrio Not Detected (Not Detect); Vibrio cholerae Not Detected (Not Detect); Yersinia enterocolitica Not Detected (Not Detect)
== END 2024-11-21 19:34 | disposition home or self-care (01) ==
PROVIDERS: Emergency Provider Physician Assistant
DX: A08.11 Acute gastroenteropathy due to Norwalk agent (principal); A07.1 Giardiasis [lambliasis]; R19.7 Diarrhea, unspecified
CPT/HCPCS: 0241U; 87507; 96365; 96375; 99283; 99284; J0134; J2405